=== PATIENT | male | born 1965 | race Caucasian/White ===

== ENCOUNTER 2023-12-21 16:18 | Observation (INO) | payer BC ==
[2023-12-21] MEDS: KETOROLAC 15 MG/ML 1 ML VIAL IVP STA (16:52)
[2023-12-21] MEDS: ONDANSETRON 4 MG/2 ML VIAL IVP STA (16:53)
[2023-12-21 17:14] LABS: Appearance,Urine Clear (Clear); Basophils # (A) 0.1 k/uL (0-0.2); Basophils % (A) 1 %; Bilirubin,Urine Negative (Negative); Blood,Urine Trace (Negative); Color,Urine Light Yellow; Eosinophils # (A) 0.2 k/uL (0-0.7); Eosinophils % (A) 2 %; Glucose,Urine (UA) Negative (Negative); HGB 14.9 gm/dL (13.0-17.5); Ketones,Urine Negative (Negative); Leukocyte Esterase,Urine Negative (Negative); Lymphocytes % (A) 24 %; MCH 28.2 pg (25.0-35.0); MCHC 31.7 g/dL (31.0-37.0); MCV 88.8 fL (80.0-100.0); Monocytes # (A) 0.5 k/uL (0-1.0); Monocytes % (A) 6 %; Mucus,Urine Rare /hpf; Neutrophils # (A) 5.3 k/uL (1.3-7.7); Neutrophils % (A) 65 %; Nitrite,Urine Negative (Negative); Platelet Count 319 k/uL (150-450); Protein,Urine Negative (Negative); RBC 5.29 m/uL (4.30-5.90); RBC,Urine 1 /hpf (0-5); RDW 13.3 % (11.5-15.5); Specific Gravity,Urine 1.017 (1.001-1.035); Squamous Epithelial Cell,Urine <1 /hpf (0-4); Urobilinogen,Urine <2.0 mg/dL (<2.0); WBC 8.1 k/uL (3.8-10.6); WBC,Urine 1 /hpf (0-5)
[2023-12-21] MEDS: HYDROmorphone 1 MG/ML 1 ML SYRINGE IVP STA (17:17)
--- NOTE | 2023-12-21 17:26 | CT ---
EXAMINATION TYPE: CT abdomen pelvis wo con CT DLP: 2164 mGycm, Automated exposure control for dose reduction was used. DATE OF EXAM: 12/21/2023 5:13 PM COMPARISON: None. CLINICAL INDICATION:Male, 58 years old with history of R flank pain; right flank pain x 2 hours TECHNIQUE: Axial CT abdomen pelvis wo con;Sagittal and coronal reformats were created on a separate workstation. Contrast used: mL of , (none if empty) Oral contrast used: without Oral Contrast (none if empty) FINDINGS: LOWER CHEST: Unremarkable ABDOMEN LIVER: Unremarkable GALLBLADDER AND BILE DUCTS: Unremarkable. PANCREAS: Unremarkable. SPLEEN: Unremarkable. ADRENAL GLANDS: Unremarkable. KIDNEYS AND URETERS: Mild right hydroureteronephrosis secondary obstructing 8 mm calculus at the uret erovesicular junction. No additional right calculi. Nonobstructing left calculi measuring up to 6 mm. PELVIS BLADDER: Unremarkable REPRODUCTIVE: Unremarkable. ABDOMEN & PELVIS STOMACH AND BOWEL: No evidence of bowel obstruction. Postsurgical changes to the gastric lumen. Submu cosal fat deposition involving the stomach. Surgical suture seen in the bowel loops in the left abdom en. PERITONEUM/RETROPERITONEUM: No evidence of pneumoperitoneum or free fluid. VASCULATURE: No evidence of aortic aneurysm. MUSCULOSKELETAL: No acute osseous abnormalities LYMPH NODES: No gross evidence for lymphadenopathy. SOFT TISSUE/ABDOMINAL WALL: Fatty changes to the right inguinal canal. IMPRESSION: Mild right hydroureteronephrosis secondary obstructing 8 mm calculus at the ureterovesicular junction .
[2023-12-21 17:43] LABS: ALT 22 U/L (4-49); AST 30 U/L (17-59); African American GFR (CKD) >90 (>60 ml/min/1.73 sqM); Albumin 4.5 g/dL (3.5-5.0); Alkaline Phosphatase 132 U/L (38-126); Anion Gap 11 mmol/L; Blood Urea Nitrogen 16 mg/dL (9-20); Calcium 9.3 mg/dL (8.4-10.2); Carbon Dioxide 22 mmol/L (22-30); Chloride 110 mmol/L (98-107); Glucose 88 mg/dL (74-99); Non-African American GFR(CKD) >90 (>60 ml/min/1.73 sqM); Potassium 4.3 mmol/L (3.5-5.1); Sodium 143 mmol/L (137-145); Total Bilirubin 0.5 mg/dL (0.2-1.3); Total Protein 7.6 g/dL (6.3-8.2)
[2023-12-21] MEDS ORDERED: NALOXONE 0.4 MG/ML 1 ML VIAL IV PRN (18:06)
[2023-12-21] MEDS ORDERED: ONDANSETRON 4 MG/2 ML VIAL IVP PRN (18:06)
--- NOTE | 2023-12-21 18:09 | ED ---
Male Urogenital HPI - General Chief complaint: Urogenital Stated complaint: Back pain Time Seen by Provider: 12/21/23 16:28 Source: patient Mode of arrival: ambulatory Limitations: no limitations - History of Present Illness Initial comments: 58-year-old male presenting with chief complaint of right flank pain. About 2 hours prior to arrival he started having right lower back pain that wraps around to the abdomen. Patient does have history of kidney stones and previously required stenting. He does note increased urination as well as burning urgency and frequency. No fevers. He does admit to nausea and vomiting. - Related Data Home Medications Medication Instructions Recorded Confirmed No Known Home Medications 12/21/23 12/21/23 Allergies Allergy/AdvReac Type Severity Reaction Status Date / Time No Known Allergies Allergy Verified 12/21/23 19:04 Review of Systems ROS Statement: Those systems with pertinent positive or pertinent negative responses have been documented in the HPI. ROS Other: All systems not noted in ROS Statement are negative. Past Medical History Additional Past Medical History / Comment(s): kidney stones, Bronchitis History of Any Multi-Drug Resistant Organisms: None Reported Past Surgical History: Appendectomy Additional Past Surgical History / Comment(s): gastric bipass Past Psychological History: No Psychological Hx Reported Smoking Status: Never smoker Past Alcohol Use History: Occasional Past Drug Use History: None Reported General Exam Limitations: no limitations General appearance: alert, in no apparent distress Head exam: Present: atraumatic, normocephalic Eye exam: Present: normal appearance Neck exam: Present: normal inspection Respiratory exam: Present: normal lung sounds bilaterally. Absent: respiratory distress, wheezes, rales, rhonchi, stridor Cardiovascular Exam: Present: regular rate, normal rhythm, normal heart sounds. Absent: systolic murmur, diastolic murmur, rubs, gallop, clicks Back exam: Present: normal inspection Neurological exam: Present: alert, oriented X3 Psychiatric exam: Present: normal affect, normal mood Skin exam: Present: warm, dry Course Vital Signs 12/21/23 12/21/23 12/21/23 16:22 17:14 18:33 Temperature 98.3 F Pulse Rate 77 53 L 51 L Respiratory 18 18 18 Rate Blood Pressure 167/90 125/86 131/74 O2 Sat by Pulse 100 99 99 Oximetry Medical Decision Making - Medical Decision Making Was pt. sent in by a medical professional or institution ([facility], LOG PREPARER, urgent care, hospital, or fpc...) When possible be specific @ -No Did you speak to anyone other than the patient for history (EMS, parent, family, police, friend...)? What history was obtained from this source @ -No Did you review nursing and triage notes (agree or disagree)? Why? @ -I reviewed and agree with nursing and triage notes Were old charts reviewed (outside hosp., previous admission, EMS record, old EKG, old radiological studies, urgent care reports/EKG's, fpc records)? Report findings @ -No old charts were reviewed Differential Diagnosis (chest pain, altered mental status, abdominal pain women, abdominal pain men, vaginal bleeding, weakness, fever, dyspnea, syncope, headache, dizziness, GI bleed, back pain, seizure, CVA, palpatations, mental health, musculoskeletal)? @ - MDM Differential Back Pain: Strain, zoster, cauda equina syndrome, epidural abscess, vertebral osteomyelitis, discitis, fracture, subluxation, disc herniation, DJD, spinal stenosis, dissection, AAA, pancreatitis, peptic ulcer disease, pyelonephritis, kidney stone this is not meant to be an all-inclusive list. EKG interpreted by me (3pts min.). @ -As above X-rays interpreted by me (1pt min.). @ -None done CT interpreted by me (1pt min.). @ -CT shows mild right hydroureteronephrosis secondary to obstructing 8 mm calculus at the UVJ U/S interpreted by me (1pt. min.). @ -None done What testing was considered but not performed or refused? (CT, X-rays, U/S, labs)? Why? @ -None What meds were considered but not given or refused? Why? @ -None Did you discuss the management of the patient with other professionals (professionals i.e. [facility] Ma, LOG PREPARER, lab, RT, psych nurse, criminal justice social worker, motion picture projectionist apprentice, teacher, chief supply chain officer, case packer and sealer)? Give summary @ -I spoke with Dr. Olivarez who states that the patient can be admitted to him if he desires surgery Was smoking cessation discussed for >3mins.? @ -No Was critical care preformed (if so, how long)? @ -No Were there social determinants of health that impacted care today? How? (Homelessness, low income, unemployed, alcoholism, drug addiction, transport ation, low edu. Level, literacy, decrease access to med. care, detention, rehab)? @ -No Was there de-escalation of care discussed even if they declined (Discuss DNR or withdrawal of care, Hospice)? DNR status @ -No What co-morbidities impacted this encounter? (DM, HTN, Smoking, COPD, CAD, Cancer, CVA, ARF, Chemo, Hep., AIDS, mental health diagnosis, sleep apnea, morbid obesity)? @ -None Was patient admitted / discharged? Hospital course, mention meds given and route, prescriptions, significant lab abnormalities, going to OR and other pertinent info. @ -58-year-old male present with chief complaint of right flank pain that started today. Admits to nausea vomiting dysuria, urgency, frequency. He is given Zofran, Toradol, and Dilaudid. Lab work shows no leukocytosis or anemia. Urine shows trace blood. CT is positive for 8 mm obstructing stone at the UVJ. Patient is educated on today's findings. His pain is well-controlled at this time, however the patient is quite worried about going home as he had a previous kidney stone that required him to return to the hospital shortly after being discharged for stent placement. I spoke with urologist on-call Dr. Jasso who states that the patient can be admitted to him if he desires surgery. I discussed these options with the patient and he would prefer admission for possible stent placement. He is provided with as needed pain and nausea medications and is n.p.o. after midnight. He is agreeable with this plan. I discussed case with my attending Dr. Wood. Undiagnosed new problem with uncertain prognosis? @ -No Drug Therapy requiring intensive monitoring for toxicity (Heparin, Nitro, Insulin, Cardizem)? @ -No Were any procedures done? @ -No Diagnosis/symptom? @ -Kidney stone Acute, or Chronic, or Acute on Chronic? @ -Acute Uncomplicated (without systemic symptoms) or Complicated (systemic symptoms)? @ -Complicated Side effects of treatment? @ -No Exacerbation, Progression, or Severe Exacerbation? @ -No Poses a threat to life or bodily function? How? (Chest pain, [place], [place], pneumonia, PE, COPD, DKA, ARF, appy, cholecystitis, CVA, Diverticulitis, Homicidal, Suicidal, threat to staff... and all critical care pts) @ -No - Lab Data Result diagrams: 12/21/23 16:54 12/21/23 16:54 Lab Results 12/21/23 12/21/23 12/21/23 Range/Units 16:54 16:54 16:54 WBC 8.1 (3.8-10.6) k/uL RBC 5.29 (4.30-5.90) m/uL Hgb 14.9 (13.0-17.5) gm/dL Hct 47.0 (39.0-53.0) % MCV 88.8 (80.0-100.0) fL MCH 28.2 (25.0-35.0) pg MCHC 31.7 (31.0-37.0) g/dL RDW 13.3 (11.5-15.5) % Plt Count 319 (150-450) k/uL MPV 8.0 Neutrophils % 65 % Lymphocytes % 24 % Monocytes % 6 % Eosinophils % 2 % Basophils % 1 % Neutrophils # 5.3 (1.3-7.7) k/uL Lymphocytes # 2.0 (1.0-4.8) k/uL Monocytes # 0.5 (0-1.0) k/uL Eosinophils # 0.2 (0-0.7) k/uL Basophils # 0.1 (0-0.2) k/uL Sodium 143 (137-145) mmol/L Potassium 4.3 (3.5-5.1) mmol/L Chloride 110 H (98-107) mmol/L Carbon Dioxide 22 (22-30) mmol/L Anion Gap 11 mmol/L BUN 16 (9-20) mg/dL Creatinine 0.88 (0.66-1.25) mg/dL Est GFR (CKD-EPI)AfAm >90 (>60 ml/min/1.73 sqM) Est GFR (CKD-EPI)NonAf >90 (>60 ml/min/1.73 sqM) Glucose 88 (74-99) mg/dL Calcium 9.3 (8.4-10.2) mg/dL Total Bilirubin 0.5 (0.2-1.3) mg/dL AST 30 (17-59) U/L ALT 22 (4-49) U/L Alkaline Phosphatase 132 H (38-126) U/L Total Protein 7.6 (6.3-8.2) g/dL Albumin 4.5 (3.5-5.0) g/dL Urine Color Light Yellow Urine Appearance Clear (Clear) Urine pH 5.0 (5.0-8.0) Ur Specific [place] 1.017 (1.001-1.035) Urine Protein Negative (Negative) Urine Glucose (UA) Negative (Negative) Urine Ketones Negative (Negative) Urine Blood Trace H (Negative) Urine Nitrite Negative (Negative) Urine Bilirubin Negative (Negative) Urine Urobilinogen <2.0 (<2.0) mg/dL Ur Leukocyte Esterase Negative (Negative) Urine RBC 1 (0-5) /hpf Urine WBC 1 (0-5) /hpf Ur Squamous Epith Cells <1 (0-4) /hpf Urine Mucus Rare H (None) /hpf Disposition Clinical Impression: Kidney stone Disposition: ADMITTED IP TO THIS [facility] Condition: Fair Time of Disposition: 18:08
[2023-12-21] MEDS: SODIUM CHLORIDE 0.9% 1,000 ML IV SCH (18:32)
[2023-12-21] MEDS: HYDROmorphone 1 MG/ML 1 ML SYRINGE IVP PRN (21:23)
[2023-12-22 08:57] VITALS: BP 119/79; PULSE 54; RESP 18; TEMP 97.7
[2023-12-22] MEDS: KETOROLAC 15 MG/ML 1 ML VIAL IVP PRN (09:39)
--- NOTE | 2023-12-22 12:36 | P.GSHP ---
History of Present Illness H&P Date: 12/22/23 Chief Complaint: Right renal colic The patient is a 58-year-old male with a history of urolithiasis, for which he has required endoscopic surgery in the past. His last kidney stone was approximately 10 years ago. He presented to the ER yesterday with acute onset of right flank pain radiating to the right abdomen, associated with nausea and vomiting. CT scan revealed evidence of right hydronephrosis due to an 8 mm right UVJ calculus. The patient was admitted for treatment with parenteral analgesics and antiemetics. Arrangements were made for him to undergo ureterosc opic removal of the calculus on December 22, 2023. - Constitutional Constitutional: Denies chills, Denies fever - Gastrointestinal Gastrointestinal: Reports nausea, Reports vomiting - Genitourinary (Male) Genitourinary: Reports dysuria, Reports urinary frequency Past Medical History Additional Past Medical History / Comment(s): kidney stones, Bronchitis History of Any Multi-Drug Resistant Organisms: None Reported Past Surgical History: Appendectomy Additional Past Surgical History / Comment(s): gastric bipass Past Psychological History: No Psychological Hx Reported Smoking Status: Never smoker Past Alcohol Use History: Occasional Past Drug Use History: None Reported Medications and Allergies Home Medications Medication Instructions Recorded Confirmed Type No Known Home Medications 12/21/23 12/21/23 History Allergies Allergy/AdvReac Type Severity Reaction Status Date / Time No Known Allergies Allergy Verified 12/21/23 19:04 Surgical - Exam Vital Signs Temp Pulse Resp BP Pulse Ox 98.3 F 77 18 167/90 100 12/21/23 16:22 12/21/23 16:22 12/21/23 16:22 12/21/23 16:22 12/21/23 16:22 - General well developed, well nourished, no distress - Respiratory normal respiratory effort - Psychiatric oriented to time, oriented to person, oriented to place, speech is normal, memory intact Results - Labs 12/21/23 16:54 12/21/23 16:54 Abnormal Lab Results - Last 24 Hours (Table) 12/21/23 12/21/23 Range/Units 16:54 16:54 Chloride 110 H (98-107) mmol/L Alkaline Phosphatase 132 H (38-126) U/L Urine Blood Trace H (Negative) Urine Mucus Rare H (None) /hpf Diabetes panel 12/21/23 Range/Units 16:54 Sodium 143 (137-145) mmol/L Potassium 4.3 (3.5-5.1) mmol/L Chloride 110 H (98-107) mmol/L Carbon Dioxide 22 (22-30) mmol/L BUN 16 (9-20) mg/dL Creatinine 0.88 (0.66-1.25) mg/dL Glucose 88 (74-99) mg/dL Calcium 9.3 (8.4-10.2) mg/dL AST 30 (17-59) U/L ALT 22 (4-49) U/L Alkaline Phosphatase 132 H (38-126) U/L Total Protein 7.6 (6.3-8.2) g/dL Albumin 4.5 (3.5-5.0) g/dL Calcium panel 12/21/23 Range/Units 16:54 Calcium 9.3 (8.4-10.2) mg/dL Albumin 4.5 (3.5-5.0) g/dL Pituitary panel 12/21/23 Range/Units 16:54 Sodium 143 (137-145) mmol/L Potassium 4.3 (3.5-5.1) mmol/L Chloride 110 H (98-107) mmol/L Carbon Dioxide 22 (22-30) mmol/L BUN 16 (9-20) mg/dL Creatinine 0.88 (0.66-1.25) mg/dL Glucose 88 (74-99) mg/dL Calcium 9.3 (8.4-10.2) mg/dL Adrenal panel 12/21/23 Range/Units 16:54 Sodium 143 (137-145) mmol/L Potassium 4.3 (3.5-5.1) mmol/L Chloride 110 H (98-107) mmol/L Carbon Dioxide 22 (22-30) mmol/L BUN 16 (9-20) mg/dL Creatinine 0.88 (0.66-1.25) mg/dL Glucose 88 (74-99) mg/dL Calcium 9.3 (8.4-10.2) mg/dL Total Bilirubin 0.5 (0.2-1.3) mg/dL AST 30 (17-59) U/L ALT 22 (4-49) U/L Alkaline Phosphatase 132 H (38-126) U/L Total Protein 7.6 (6.3-8.2) g/dL Albumin 4.5 (3.5-5.0) g/dL - Imaging CT scan - abdomen: report reviewed, image reviewed Assessment and Plan (1) Calculus of ureter Current Visit: Yes Status: Acute Code(s): N20.1 - CALCULUS OF URETER SNOMED Code(s): 86642286 Plan: The patient passed the calculus and subsequently was asymptomatic. The calculus is being sent for chemical analysis. The CT scan showed 2 left renal calculi, each measuring approximately 6 mm in size. These will not require treatment as long as the patient is asymptomatic. He was offered the option of a formal metabolic evaluation to determine the cause of his recurrent urolithiasis. He d eclines this, but he was given dietary advice for kidney stone prevention (increase fluids, decrease dietary meat/salt/oxalate). He will be discharged home and follow-up as needed. Time with Patient: Greater than 30
== END 2023-12-22 13:07 | disposition home or self-care (01) ==
LOC: EC 16:18 → 5NMEDONC 18:45 → 6NMEDSUR 19:01 → UNDODISOB 12-22 13:07
PROVIDERS: ADMIT Urology; ATTEND Urology
DX: N13.2 Hydronephrosis with renal and ureteral calculous obstruction (principal); Z87.442 Personal history of urinary calculi
CPT/HCPCS: 96365; 96366 ×2; 96367; 96374; 99285; 36415; 80053; 85025; 81001; 82365; 74176; G0378 ×2; J2405; J1170 ×2; J1885 ×2